=== PATIENT | male | born 1990 | race Caucasian/White ===

== ENCOUNTER 2017-04-30 19:14 | Emergency (ER) | payer OTHER ==
[~2017-04-30] VITALS: Ht 172.7 cm; Wt 122.0 kg
[2017-04-30] MEDS ORDERED: IBUPROFEN 600 MG TABLET PO ONE (20:00)
[2017-04-30] MEDS ORDERED: BACITRACIN 0.9 GM PACKET OINTMENT TP ONE (20:00)
[2017-04-30] MEDS ORDERED: HYDROCODONE/ACETAMINOPHEN 5-325 MG TABLET PO ONE (20:00)
[2017-04-30 21:30] VITALS: BP 143/89
== END 2017-04-30 22:37 | disposition home or self-care (01) ==
LOC: EMS 19:17
DX: S13.9XXA Sprain of joints and ligaments of unspecified parts of neck, initial encounter (principal); S16.1XXA Strain of muscle, fascia and tendon at neck level, initial encounter; S33.5XXA Sprain of ligaments of lumbar spine, initial encounter; S20.211A Contusion of right front wall of thorax, initial encounter; S40.012A Contusion of left shoulder, initial encounter; S50.812A Abrasion of left forearm, initial encounter; V48.5XXA Car driver injured in noncollision transport accident in traffic accident, initial encounter; Y93.89 Activity, other specified; Y92.410 Unspecified street and highway as the place of occurrence of the external cause; Y99.9 Unspecified external cause status
CPT/HCPCS: 71111; 72040; 72100; 72170; 99284

== ENCOUNTER 2017-07-13 19:29 | Emergency (ER) | payer OTHER ==
[~2017-07-13] VITALS: Ht 172.7 cm; Wt 120.0 kg
[2017-07-13] MEDS ORDERED: IBUPROFEN 800 MG TABLET PO ONE (20:15)
[2017-07-13 20:20] VITALS: BP 132/76
== END 2017-07-13 20:25 | disposition home or self-care (01) ==
LOC: EMS 19:32
DX: S09.90XA Unspecified injury of head, initial encounter (principal); V49.40XA Driver injured in collision with unspecified motor vehicles in traffic accident, initial encounter; Y93.89 Activity, other specified; Y92.89 Other specified places as the place of occurrence of the external cause; Y99.8 Other external cause status
CPT/HCPCS: 99282